=== PATIENT | female | born 2000 | race Two or more races ===

== ENCOUNTER 2021-04-18 14:13 | Emergency (ER) | payer OTHER ==
[~2021-04-18] VITALS: Ht 175.3 cm; Wt 63.5 kg
[2021-04-18] MEDS ORDERED: CYMBALTA20 MG PO (14:45)
== END 2021-04-18 17:30 | disposition home or self-care (01) ==
LOC: ER 14:13 → EMR PED 14:29 → ER 14:29 → EMR PED 17:30
DX: N90.89 Other specified noninflammatory disorders of vulva and perineum (principal); N89.8 Other specified noninflammatory disorders of vagina